=== PATIENT | female | born 1930 | race Caucasian/White ===

== ENCOUNTER 2018-12-12 12:52 | Inpatient (IN) ==
--- NOTE | 2018-12-12 15:48 | Internal Med History&Physical ---
Date of Encounter: 12/12/18 Time of Encounter: 15:34 Assessment and Plan (1) Femoral neck fracture Current visit: No Status: Acute Patient expresses some mechanical fall that resulted in a right hip fracture. Patient had a right hemiarthroplasty performed on 12/08/18 and an [facility]. Recovery was uneventful. Patient has had a recent left hemiarthroplasty performed 4 months ago also as a result of mechanical fall. Patient continues to have unsteady gait and remains a risk. Patient admitted for rehabilitation due to her weakness and unsteady gait. Surgical dressing to right hip appears dry and intact with a minimal amount of edema noted. No ecchymosis or erythema noted. Physical therapy evaluation pending. States pain is tolerable with current medications Qualifiers: Encounter type: initial encounter Fracture type: closed Laterality: left Qualified Code(s): S72.002A - Fracture of unspecified part of neck of left femur, initial encounter for closed fracture (2) CAD (coronary artery disease) Current visit: Yes Status: Chronic No acute issues per medical records. Patient denies any chest discomforts or palpitations. We will continue on current medications. Qualifiers: Coronary Disease-Associated Artery/Lesion type: bypass graft [place] vs. transplanted heart: [place] heart Associated angina: without angina Qualified Code(s): I25.810 - Atherosclerosis of coronary artery bypass graft(s) without angina pectoris (3) Hypertension Current visit: No Status: Chronic Vital signs are stable. We will continue with current medications. Qualifiers: Hypertension type: essential hypertension Qualified Code(s): I10 - Essential (primary) hypertension (4) Atrial fibrillation Current visit: No Status: Chronic No acute issues. Patient's ventricular rate is controlled at less than 100. We will continue with current medications Qualifiers: Atrial fibrillation type: chronic Qualified Code(s): I48.2 - Chronic atrial fibrillation (5) UTI (urinary tract infection) Current visit: Yes Status: Acute Patient was diagnosed with UTI while at [facility]. Patient was discharged with Keflex for 7 days. Currently asymptomatic and afebrile. Qualifiers: Urinary tract infection type: site unspecified Hematuria presence: without hematuria Qualified Code(s): N39.0 - Urinary tract infection, site not specified (6) Hyponatremia Current visit: No Status: Acute Patient's sodium at discharge was 124. Patient's sodium has remained in the low 120s her stay at [facility]. We will obtain labs in the morning for further evaluation. Patient currently is asymptomatic. Internal Medicine - H&P: HPI Chief complaint: ORIF of right hip Fx Admitted From: Hospital to Hospital Transfer Plans for Post Hospital Care: Home History of present illness: Ms. Ansari is a 88 year old female, who experienced a mechanical fall at home resulting in a right hip fracture. Patient had a elliot-arthroplasty of the right hip on 12/08/18. Patient's recovery from the surgery was uncomfortable [facility]. Patient also has had a recent left hemiarthroplasty performed approximate 4 months ago related to a fall at that time. Patient currently states that her pain has been well tolerated with current medications. Patient states she has already been ambulating with assistance prior to arrival to rehabilitation facility. Patient transferred to this facility for further rehabilitation due to her unsteady gait and will generalized weakness related to her right hip surgery. Denies any other discomforts or dyspnea. Patient family members did state the patient at times becomes somewhat confused at night with nocturnal confusion Past Med Surg Social Fam HX - Past Medical History Source: patient, old records reviewed Medical history: CHF, CVA, GERD, hypertension, myocardial infarction, thyroid disease Psychiatric history: depression - Past Surgical History Surgical History: appendectomy, cholecystectomy, coronary bypass (CABG), hysterectomy, pacemaker/AICD Additional surgical history: partial left lung lobectomy, abdominal surgery - Social History Smoking Status: Never smoker Smokeless Tobacco Status: No Alcohol use: none Drug use: none - Family History Mother Adopted: No Hx Family Cardiac Disorders: Yes Internal Medicine - H&P: Meds Apixaban [Eliquis] 5 mg PO BID 06/06/18 [History] Chlorthalidone 25 mg PO DAILY 06/06/18 [History] Levothyroxine Sodium 50 mcg PO DAILY 06/06/18 [History] Meloxicam 15 mg PO DAILY 06/06/18 [History] NIFEdipine [Nifedipine ER] 60 mg PO DAILY 06/06/18 [History] Pantoprazole Sodium [Protonix] 40 mg PO DAILY 06/06/18 [History] Sotalol HCl [Betapace] 120 mg PO BID 06/06/18 [History] Docusate [Colace] 100 mg PO BID capsule 06/09/18 [Rx] Ferrous Sulfate 325 mg PO BIDWM 30 Days #60 tablet 06/09/18 [Rx] HYDROcodone/Acet 5/325 mg [[place]ren 5-325 mg] 1 tab PO Q4H PRN 3 Days #12 tab 06/09/18 [Rx] MOM Conc [MILK OF MAGNESIA conc] 5 ml PO HS PRN [id number] 06/09/18 [Rx] Potassium Chloride [Klor-Con 10] 10 meq PO BID #0 06/09/18 [Rx] Allergy/AdvReac Type Severity Reaction Status Date / Time Influenza Virus Vaccines Allergy Wheezing Verified 06/06/18 01:12 Sulfa (Sulfonamide Allergy Anaphylaxis Verified 06/06/18 01:12 Antibiotics) Procaine [From Novocain] AdvReac Itching Verified 06/06/18 01:12 All Systems PM: A 10-system review of systems was performed and is negative for pertinent findings except as documented above in the HPI. - Constitutional Constitutional: as per HPI, no chills, no fever(s), no night sweats - EENT Eyes: as per HPI, no change in vision, no discharge, no pain, no photophobia Ears: as per HPI, no ear discharge, no ear pain, no tinnitus Nose, mouth and throat: as per HPI, no dysphagia, no nasal discharge, no neck pain, no sore throat - Breasts Breasts: as per HPI - Cardiovascular Cardiovascular ROS IM: as per HPI, no chest pain, no diaphoresis, no dyspnea, no lightheadedness, no palpitations, no syncope - Respiratory Respiratory: as per HPI, no cough, no dyspnea, no wheezing, no excessive phlegm production - Gastrointestinal Gastrointestinal: as per HPI, no abdominal pain, no diarrhea, no hematemesis, no hematochezia, no melena, no nausea, no vomiting - Genitourinary Genitourinary: as per HPI, no change in urinary stream, no dysuria, no flank pain, no hematuria Menstruation: as per HPI - Musculoskeletal Musculoskeletal ROS IM: as per HPI, no numbness, no tingling - Integumentary Integumentary IM: as per HPI, no rash, no unusual bruising - Neurological Neurological ROS: as per HPI, no confusion, no convulsions, no focal weakness, no numbness, no tingling, no tremor(s) - Psychiatric Psychiatric: as per HPI - Endocrine Endocrine IM: as per HPI - Hematologic/Lymphatic Hematologic/Lymphatic: no easy bruising - Constitutional Vitals: BP 160/90 12/12/18 13:43 General appearance: Present: A&O X 3, pleasant - Head Head exam: Present: atraumatic, normocephalic - Eye Eye exam: Present: PERRL, conjuntiva pink, sclera anicteric Pupils: Present: PERRL - Neck Neck exam general surgery: Present: full ROM, supple, trachea midline. Absent: lymphadenopathy - Respiratory Respiratory exam: Present: CTAB. Absent: accessory muscle use, rales, rhonchi, wheezes - Cardiovascular Cardiovascular exam: Present: RRR, +S1, +S2. Absent: diastolic murmur, gallop, rubs, systolic murmur - GI/Abdominal GI/Abdominal exam: Present: normal bowel sounds, soft, no peritoneal signs. Absent: distended, tenderness - Extremities Exam Extremities exam: Present: warm, radial pulses palpable and symmetrical. Absent: calf tenderness, cyanotic, pedal edema Additional comments: Right hip surgical dsg remains dry and intact. - Neurological Exam Neurological exam: Present: CN II-XII intact, oriented X3, no focal deficits. Absent: pronater drift, facial droop, speech deficit - Skin Skin exam: Present: dry, intact
[2018-12-12] MEDS ORDERED: Ibuprofen 600 MG TABLET PO PRN (16:21)
[2018-12-12] MEDS: cephALEXin 500 MG CAPSULE PO SCH (21:05)
[2018-12-12] MEDS: Apixaban 5 MG TABLET PO SCH (21:05)
[2018-12-12] MEDS: *HR* HYDROcodone/Acet 5/325 mg TABLET PO PRN (21:06)
[2018-12-13] MEDS: *HR* HYDROcodone/Acet 5/325 mg TABLET PO PRN ×3 (02:42→23:28)
[2018-12-13 05:57] LABS: Basophils % 0.3 %; Eosinophils # 0.5 K/mcL (0.0-0.6); Eosinophils % 4.1 %; Hematocrit 24.7 % (35.3-44.9); Hemoglobin 8.3 g/dL (11.5-15.4); Immature Granulocytes % 0.5 % (0-4); Lymphocytes # 2.8 K/mcL (0.6-4.6); Lymphocytes % 23.5 %; Mean Corpuscular HGB Conc 33.6 g/dL (31.6-35.5); Mean Corpuscular Hemoglobin 29.5 pg (28.0-33.3); Mean Corpuscular Volume 87.9 fL (83.0-100.0); Mean Platelet Volume 9.4 fL (9.4-12.4); Monocytes # 1.2 K/mcL (0.0-1.3); Monocytes % 10.2 %; Neutrophils # 7.4 K/mcL (1.6-8.9); Platelet Count 252 K/mcL (140-400); Red Blood Count 2.81 M/mcL (3.82-4.97); Red Cell Distribution Width 15.9 % (11.5-14.5); Segmented Neutrophils % 61.4 %
[2018-12-13 06:00] LABS: INR 1.6; Prothrombin Time 17.6 Seconds (9.4-12.1)
[2018-12-13 06:03] LABS: Activated Partial Thrombo Time 32.1 Seconds (26.0-36.0)
[2018-12-13 06:11] LABS: Alanine Aminotransferase 9 Units/L (7-52); Albumin 2.4 g/dL (3.5-5.7); Alkaline Phosphatase 124 Units/L (34-104); Aspartate Amino Transferase 22 Units/L (13-39); BUN/Creatinine Ratio 26 (6-26); Bilirubin,Total 0.9 mg/dL (0.3-1.0); Blood Urea Nitrogen 14 mg/dL (8-23); Calcium 7.9 mg/dL (8.6-10.3); Carbon Dioxide 29 mEq/L (23-29); Chloride 99 mEq/L (98-107); Globulin 2.4 g/dL (2.4-3.5); Glucose 100 mg/dL (70-105); Osmolality,Calculated 277 (280-300); Potassium 4.2 mEq/L (3.5-5.1); Sodium 133 mEq/L (136-145); Total Protein 4.8 g/dL (6.4-8.9); eGFR For Non-African Americans > 60 (> 60)
[2018-12-13] MEDS: Ascorbic Acid 500 MG TABLET PO SCH (09:02)
[2018-12-13] MEDS: cephALEXin 500 MG CAPSULE PO SCH ×3 (09:02→19:36)
[2018-12-13] MEDS: Apixaban 5 MG TABLET PO SCH ×2 (09:02→19:36)
[2018-12-13] MEDS: amLODIPine 5 MG TABLET PO SCH (09:02)
--- NOTE | 2018-12-13 16:24 | Internal Med Progress Note ---
Addendum entered and electronically signed by Susana Ramos 12/14/18 14:37: I have personally performed a face to face evaluation on this patient. I have reviewed and agree with the care plan. Original Note: Date of Encounter: 12/13/18 Time of Encounter: 16:22 - Assessment and plan (1) Femoral neck fracture Current Visit: Yes Status: Acute Assessment and plan: Continue PT and OT. Will follow progress. Follow up with ortho as scheduled. Continue current medications for pain. Qualifiers: Encounter type: sequela Fracture type: closed Laterality: left Qualif ied Code(s): S72.002S - Fracture of unspecified part of neck of left femur, sequela (2) CAD (coronary artery disease) Current Visit: Yes Status: Chronic Assessment and plan: Controlled. Denies chest pain. Monitor. Qualifiers: Coronary Disease-Associated Artery/Lesion type: bypass graft [place] vs. transplanted heart: [place] heart Associated angina: without angina Qualified Code(s): I25.810 - Atherosclerosis of coronary artery bypass graft(s) without angina pectoris (3) Hypertension Current Visit: Yes Status: Chronic Assessment and plan: Controlled with current medication. Monitor BP. Qualifiers: Hypertension type: essential hypertension Qualified Code(s): I10 - Essential (primary) hypertension (4) Atrial fibrillation Current Visit: Yes Status: Chronic Assessment and plan: Rate and rhythm controlled. Continue betapace and eliquis Qualifiers: Atrial fibrillation type: chronic Qualified Code(s): I48.2 - Chronic atrial fibrillation (5) UTI (urinary tract infection) Current Visit: Yes Status: Acute Assessment and plan: Denies urinary symptoms. Continue Keflex. Qualifiers: Urinary tract infection type: site unspecified Hematuria presence: without hematuria Qualified Code(s): N39.0 - Urinary tract infection, site not specified - Time Spent With Patient less than 15 minutes - Subjective Interval history: Patient participating well with therapy. Contact guard assist with transfers. Patient denies any pain. States medications are controlling it. Denies fever, chills, nausea vomiting or diarrhea. Maintaining appetite and hydration. States bowels moving as normal. Currently on Keflex for UTI. - Constitutional Vitals: Temp Pulse Resp BP Pulse Ox 98.3 F 58 16 109/64 95 12/13/18 07:25 12/13/18 07:25 12/13/18 07:25 12/13/18 07:25 12/13/18 07:25 General appearance: Present: cooperative, A&O X 3, pleasant, no acute distress, answers questions appropriately - Head Head exam: Present: atraumatic, normocephalic - Eye Eye exam: Present: PERRL, conjuntiva pink, sclera anicteric Pupils: Present: PERRL - Neck Neck exam general surgery: Present: supple, trachea midline. Absent: lymphadenopathy - Respiratory Respiratory exam: Present: CTAB. Absent: accessory muscle use, rales, rhonchi, wheezes - Cardiovascular Cardiovascular exam: Present: RRR, +S1, +S2. Absent: diastolic murmur, gallop, rubs, systolic murmur - GI/Abdominal GI/Abdominal exam: Present: normal bowel sounds, soft, no peritoneal signs. Absent: distended, tenderness - Extremities Exam Extremities exam: Present: warm, radial pulses palpable and symmetrical. Absent: calf tenderness, cyanotic, pedal edema - [place] Comments: Right hip incision dressing dry and intact with surrounding edema. - Neurological Exam Neurological exam: Present: CN II-XII intact, oriented X3, no focal deficits. Absent: pronater drift, facial droop, speech deficit - Skin Skin exam: Present: dry, intact Internal Medicine: Result - Labs CBC & Chem 7: 12/13/18 05:40 12/13/18 05:40 Labs: Short CBC 12/13/18 Range/Units 05:40 WBC 12.1 H (4.3-11.1) K/mcL Hgb 8.3 L (11.5-15.4) g/dL Hct 24.7 L (35.3-44.9) % Plt Count 252 (140-400) K/mcL Neutrophils # 7.4 (1.6-8.9) K/mcL BMP 12/13/18 05:40 Sodium 133 L Potassium 4.2 Chloride 99 Carbon Dioxide 29 BUN 14 Creatinine 0.53 L Glucose 100 Calcium 7.9 L Liver Function 12/13/18 Range/Units 05:40 Total Bilirubin 0.9 (0.3-1.0) mg/dL AST 22 (13-39) Units/L ALT 9 (7-52) Units/L Alkaline Phosphatase 124 H (34-104) Units/L Albumin 2.4 L (3.5-5.7) g/dL - ABG Interpretation ABG results: PT/INR, D-dimer PT 17.6 Seconds (9.4-12.1) H 12/13/18 05:40 Consult Discharge Plan - Plan Referrals: Haresh Franco MD [Primary Care Provider] - Pavel Bautista MD [Non-Partnered Physician] - (call for apt 2 wks after surgery)
[2018-12-14] MEDS: *HR* HYDROcodone/Acet 5/325 mg TABLET PO PRN ×4 (05:58→20:57)
[2018-12-14] MEDS: cephALEXin 500 MG CAPSULE PO SCH ×3 (09:40→20:57)
[2018-12-14] MEDS: Apixaban 5 MG TABLET PO SCH ×2 (09:40→20:57)
[2018-12-14] MEDS: Ascorbic Acid 500 MG TABLET PO SCH (09:40)
[2018-12-14] MEDS: amLODIPine 5 MG TABLET PO SCH (09:40)
--- NOTE | 2018-12-14 11:10 | Internal Med Progress Note ---
Addendum entered and electronically signed by Susana Ramos 12/14/18 14:38: I have personally performed a face to face evaluation on this patient. I have reviewed and agree with the care plan. Pt has had elevated WBC likely due to UTI. Afebrile. Will repeat CBC and continue antibiotic for UTI Albumen is low and pt has seen room cooler installer. She is giving whole milk as pt likes this. Original Note: Date of Encounter: 12/14/18 Time of Encounter: 11:08 - Assessment and plan (1) Femoral neck fracture Current Visit: Yes Status: Acute Assessment and plan: No acute issues. Right hip surgical site appears to be healing well and intact. Patient has been participating in physical therapy and progressing well. Patient is been well managed his current medications. We will continue with current plan of care. Qualifiers: Encounter type: sequela Fracture type: closed Laterality: left Qualified Code(s): S72.002S - Fracture of unspecified part of neck of left femur, sequela (2) CAD (coronary artery disease) Current Visit: Yes Status: Chronic Assessment and plan: No acute issues. Patient denies any chest discomforts or palpitations. We will continue with current medications. Qualifiers: Coronary Disease-Associated Artery/Lesion type: bypass graft [place] vs. transplanted heart: [place] heart Associated angina: without angina Qualified Code(s): I25.810 - Atherosclerosis of coronary artery bypass graft(s) without angina pectoris (3) Hypertension Current Visit: Yes Status: Chronic Assessment and plan: Vital signs remained stable. We will continue with current medications. Qualifiers: Hypertension type: essential hypertension Qualified Code(s): I10 - Essential (primary) hypertension (4) Atrial fibrillation Current Visit: Yes Status: Chronic Assessment and plan: Acute issues. Patient's ventricular rate has been well controlled less than 100. We will continue with current medications. Qualifiers: Atrial fibrillation type: chronic Qualified Code(s): I48.2 - Chronic atrial fibrillation (5) UTI (urinary tract infection) Current Visit: Yes Status: Acute Assessment and plan: Patient continues on Keflex for her UTI. Afebrile. Denies any dysuria. We will continue with current plan of care Qualifiers: Urinary tract infection type: site unspecified Hematuria presence: without hematuria Qualified Code(s): N39.0 - Urinary tract infection, site not specified (6) Hyponatremia Current Visit: Yes Status: Acute Assessment and plan: Patient's most recent sodium was 133. We will continue to monitor with serial labs. - Time Spent With Patient less than 15 minutes - Subjective Interval history: Patient appears relaxed and currently denies any discomforts surgical site or dyspnea. Patient does complain about sore throat. Patient denies any other flulike symptoms or productive cough. Patient states that her pain has been well tolerated with current pain medications. States that physical therapy has been progressing well although this morning she did feel malaised - Constitutional Vitals: Temp Pulse Resp BP Pulse Ox 98.0 F 66 20 129/76 94 12/14/18 07:37 12/14/18 07:37 12/14/18 07:37 12/14/18 07:37 12/14/18 07:37 General appearance: Present: cooperative, A&O X 3, pleasant, no acute distress, answers questions appropriately - Head Head exam: Present: atraumatic, normocephalic - Eye Eye exam: Present: PERRL, conjuntiva pink, sclera anicteric Pupils: Present: PERRL - Neck Neck exam general surgery: Present: supple, trachea midline. Absent: lymphadenopathy - Respiratory Respiratory exam: Present: CTAB. Absent: accessory muscle use, rales, rhonchi, wheezes Additional comments: Lungs are clear throughout upper giron with fine rales her to posterior bases. Respiratory effort is relaxed. No productive cough noted. - Cardiovascular Cardiovascular exam: Present: RRR, +S1, +S2. Absent: diastolic murmur, gallop, rubs, systolic murmur - GI/Abdominal GI/Abdominal exam: Present: normal bowel sounds, soft, no peritoneal signs. Absent: distended, tenderness - Extremities Exam Extremities exam: Present: warm, radial pulses palpable and symmetrical. Absent: calf tenderness, cyanotic, pedal edema Additional comments: Right hip surgical site appears healthy and intact. Left hip surgical site well-healed. - Neurological Exam Neurological exam: Present: CN II-XII intact, oriented X3, no focal deficits. Absent: pronater drift, facial droop, speech deficit - Skin Skin exam: Present: dry, intact Internal Medicine: Result - Labs CBC & Chem 7: 12/13/18 05:40 12/13/18 05:40 - ABG Interpretation ABG results: PT/INR, D-dimer PT 17.6 Seconds (9.4-12.1) H 12/13/18 05:40 Consult Discharge Plan - Plan Referrals: Haresh Franco MD [Primary Care Provider] - Pavel Bautista MD [Non-Partnered Physician] - (call for apt 2 wks after surgery)
[2018-12-15 04:56] LABS: Hematocrit 24.5 % (35.3-44.9); Hemoglobin 8.1 g/dL (11.5-15.4); Mean Corpuscular HGB Conc 33.1 g/dL (31.6-35.5); Mean Corpuscular Hemoglobin 29.5 pg (28.0-33.3); Mean Corpuscular Volume 89.1 fL (83.0-100.0); Mean Platelet Volume 9.1 fL (9.4-12.4); Platelet Count 313 K/mcL (140-400); Red Blood Count 2.75 M/mcL (3.82-4.97)
[2018-12-15] MEDS: *HR* HYDROcodone/Acet 5/325 mg TABLET PO PRN ×3 (05:42→16:40)
[2018-12-15 08:46] LABS: % Iron Saturation 14 % (15-50); Iron 37 mcg/dL (50-170); Transferrin 195 mg/dL (203-362)
[2018-12-15] MEDS: Apixaban 5 MG TABLET PO SCH ×2 (10:06→20:39)
[2018-12-15] MEDS: cephALEXin 500 MG CAPSULE PO SCH ×3 (10:07→20:39)
[2018-12-15] MEDS: amLODIPine 5 MG TABLET PO SCH (10:08)
[2018-12-15] MEDS: Ascorbic Acid 500 MG TABLET PO SCH (10:08)
--- NOTE | 2018-12-15 13:18 | Internal Med Progress Note ---
Date of Encounter: 12/15/18 Time of Encounter: 13:15 - Assessment and plan (1) Femoral neck fracture Current Visit: Yes Status: Acute Assessment and plan: No acute issues. Right hip surgical site appears to be healing well and intact. Patient has been participating in physical therapy and progressing well. Patient is been well managed his current medications. We will continue with current plan of care. Qualifiers: Encounter type: sequela Fracture type: closed Laterality: left Qualified Code(s): S72.002S - Fracture of unspecified part of neck of left femur, sequela (2) CAD (coronary artery disease) Current Visit: Yes Status: Chronic Assessment and plan: No acute issues. Patient denies any chest discomforts or palpitations. We will continue with current medications. Qualifiers: Coronary Disease-Associated Artery/Lesion type: bypass graft [place] vs. transplanted heart: [place] heart Associated angina: without angina Qualified Code(s): I25.810 - Atherosclerosis of coronary artery bypass graft(s) without angina pectoris (3) Hypertension Current Visit: Yes Status: Chronic Assessment and plan: Vital signs remained stable. We will continue with current medications. Qualifiers: Hypertension type: essential hypertension Qualified Code(s): I10 - Essential (primary) hypertension (4) Atrial fibrillation Current Visit: Yes Status: Chronic Assessment and plan: Acute issues. Patient's ventricular rate has been well controlled less than 100. We will continue with current medications. Qualifiers: Atrial fibrillation type: chronic Qualified Code(s): I48.2 - Chronic atrial fibrillation (5) Anemia Current Visit: Yes Status: Acute Assessment and plan: Patient has had a steady drop in her hemoglobin today or levels at 8.1. No signs of active bleeding noted. Patient had a steady decline since her surgery. Patient's labs show a serum iron of 37. Patient was placed on oral iron. We will guaiac stools. Patient started on Carafate. Repeat labs in a.m. Qualifiers: Anemia type: unspecified type Qualified Code(s): D64.9 - Anemia, unspecified - Time Spent With Patient less than 15 minutes - Subjective Interval history: Patient appears relaxed and currently denies any discomforts or dyspnea. Patient states that her pain has been well tolerated with current pain medications. States that physical therapy has been progressing well although this morning she did feel malaised - Constitutional Vitals: Temp Pulse Resp BP Pulse Ox 97.8 F 78 16 150/84 94 12/15/18 07:33 12/15/18 07:33 12/15/18 07:33 12/15/18 07:33 12/15/18 07:33 General appearance: Present: cooperative, A&O X 3, pleasant, no acute distress, answers questions appropriately - Head Head exam: Present: atraumatic, normocephalic - Eye Eye exam: Present: PERRL, conjuntiva pink, sclera anicteric Pupils: Present: PERRL - Neck Neck exam general surgery: Present: supple, trachea midline. Absent: lymphadenopathy - Respiratory Respiratory exam: Present: CTAB. Absent: accessory muscle use, rales, rhonchi, wheezes - Cardiovascular Cardiovascular exam: Present: RRR, +S1, +S2. Absent: diastolic murmur, gallop, rubs, systolic murmur - GI/Abdominal GI/Abdominal exam: Present: normal bowel sounds, soft, no peritoneal signs. Absent: distended, tenderness - Extremities Exam Extremities exam: Present: warm, radial pulses palpable and symmetrical. Absent: calf tenderness, cyanotic, pedal edema Additional comments: Right hip surgical site appears healthy and intact. Minimal edema noted. - Neurological Exam Neurological exam: Present: CN II-XII intact, oriented X3, no focal deficits. Absent: pronater drift, facial droop, speech deficit - Skin Skin exam: Present: dry, intact Internal Medicine: Result - Labs CBC & Chem 7: 12/15/18 04:48 12/13/18 05:40 Labs: Short CBC 12/15/18 Range/Units 04:48 WBC 12.6 H (4.3-11.1) K/mcL Hgb 8.1 L (11.5-15.4) g/dL Hct 24.5 L (35.3-44.9) % Plt Count 313 (140-400) K/mcL - ABG Interpretation ABG results: PT/INR, D-dimer PT 17.6 Seconds (9.4-12.1) H 12/13/18 05:40 Consult Discharge Plan - Plan Referrals: Haresh Franco MD [Primary Care Provider] - Pavel Bautista MD [Non-Partnered Physician] - (call for apt 2 wks after surgery)
[2018-12-15] MEDS: Cyanocobalamin (B-12) 1,000 MCG TABLET PO SCH (16:41)
[2018-12-15] MEDS ORDERED: Chloraseptic Spray 177 ML BOTTLE MM PRN (16:46)
[2018-12-16] MEDS: *HR* HYDROcodone/Acet 5/325 mg TABLET PO PRN ×3 (04:12→21:39)
[2018-12-16] MEDS: cephALEXin 500 MG CAPSULE PO SCH ×3 (08:02→21:40)
[2018-12-16] MEDS: Cyanocobalamin (B-12) 1,000 MCG TABLET PO SCH (08:02)
[2018-12-16] MEDS: Ascorbic Acid 500 MG TABLET PO SCH (08:02)
[2018-12-16] MEDS: amLODIPine 5 MG TABLET PO SCH (08:03)
[2018-12-16] MEDS: Apixaban 5 MG TABLET PO SCH ×2 (08:06→21:41)
--- NOTE | 2018-12-16 11:14 | Internal Med Progress Note ---
Date of Encounter: 12/17/18 Time of Encounter: 10:30 - Subjective Interval history: - Assessment and plan (1) Femoral neck fracture Current Visit: Yes Status: Acute Assessment and plan: No acute issues. Right hip surgical site appears to be healing well and intact. Patient has been participating in physical therapy and progressing well. Patient is been well managed his current medications. We will continue with current plan of care. Qualifiers: Encounter type: sequela Fracture type: closed Laterality: left Qualified Code(s): S72.002S - Fracture of unspecified part of neck of left femur, sequela (2) CAD (coronary artery disease) Current Visit: Yes Status: Chronic Assessment and plan: No acute issues. Patient denies any chest discomforts or palpitations. We will continue with current medications. Qualifiers: Coronary Disease-Associated Artery/Lesion type: bypass graft [place] vs. transplanted heart: [place] heart Associated angina: without angina Qualified Code(s): I25.810 - Atherosclerosis of coronary artery bypass graft(s) without angina pectoris (3) Hypertension Current Visit: Yes Status: Chronic Assessment and plan: Vital signs remained stable. We will continue with current medications. Qualifiers: Hypertension type: essential hypertension Qualified Code(s): I10 - Essential (primary) hypertension (4) Atrial fibrillation Current Visit: Yes Status: Chronic Assessment and plan: Acute issues. Patient's ventricular rate has been well controlled less than 100. We will continue with current medications but decrease dose of Eliquis to 2.5 mg po BID due to anemia and advanced age Qualifiers: Atrial fibrillation type: chronic Qualified Code(s): I48.2 - Chronic atrial fibrillation (5) Anemia Current Visit: Yes Status: Acute Assessment and plan: Patient has anemia that has improved from 8.1 No melana. No signs of active bleeding noted. Pt has been nutritionally depleted and not eating well. She has been placed on iron. Stool guaiac was ordered but may be false POS due to iron po. Pt also has been given NSAID. Will STOP nsaid. Patient started on PPI She is on eliquis for A Fib but does not appear to be bleeding. Will decrease dose to 2.5 from 5 mg . Repeat labs in a.m. Qualifiers: Anemia type: unspecified type Qualified Code(s): D64.9 - Anemia, unspecified (6) Huponatremia Pt sodium has been low will recheck she has been on cardiac diet but her protein and her sodium have been low will change her to [facility] ground meat regular diet continue fluid restriction - Time Spent With Patient less than 15 minutes - Subjective Interval history: Patient has been fatigued but cooperative. Patient states that her pain has been well tolerated with current pain medications. States that physical therapy has been progressing well - Constitutional Vitals: General appearance: Present: thin frail cooperative, A&O X 3, pleasant, no acute distress, fatigued - Head Head exam: Present: atraumatic, normocephalic - Eye Eye exam: Present: PERRL, conjuntiva pink, sclera anicteric Pupils: Present: PERRL - Neck Neck exam general surgery: Present: supple, trachea midline. Absent: lymphadenopathy - Respiratory Respiratory exam: Present: CTAB. Absent: accessory muscle use, rales, rhonchi, wheezes - Cardiovascular Cardiovascular exam: Present: RRR, +S1, +S2. Absent: diastolic murmur, gallop, rubs, systolic murmur - GI/Abdominal GI/Abdominal exam: Present: normal bowel sounds, soft, no peritoneal signs. Absent: distended, tenderness - Extremities Exam Extremities exam: Present: warm, radial pulses palpable and symmetrical. Absent: calf tenderness, cyanotic, pedal edema Additional comments: Right hip surgical site appears healthy and intact. Minimal edema noted. - Neurological Exam Neurological exam: Present: CN II-XII intact, oriented X3, no focal deficits. Absent: pronater drift, facial droop, speech deficit - Skin Skin exam: Present: dry, intact - Constitutional Vitals: Temp Pulse Resp BP Pulse Ox 98.0 F 67 17 125/83 94 12/16/18 06:52 12/16/18 06:52 12/15/18 18:55 12/16/18 06:52 12/16/18 06:52 Internal Medicine: Result - Labs CBC & Chem 7: 12/16/18 11:27 12/16/18 11:27 - ABG Interpretation ABG results: PT/INR, D-dimer PT 17.6 Seconds (9.4-12.1) H 12/13/18 05:40 Consult Discharge Plan - Plan Referrals: Haresh Franco MD [Primary Care Provider] - Bautista,Pavel S, MD [Non-Partnered Physician] - (call for apt 2 wks after surgery)
[2018-12-16 11:31] LABS: Hematocrit 26.7 % (35.3-44.9); Hemoglobin 8.6 g/dL (11.5-15.4); Mean Corpuscular HGB Conc 32.2 g/dL (31.6-35.5); Mean Corpuscular Hemoglobin 29.4 pg (28.0-33.3); Mean Corpuscular Volume 91.1 fL (83.0-100.0); Mean Platelet Volume 8.8 fL (9.4-12.4); Platelet Count 351 K/mcL (140-400); Red Blood Count 2.93 M/mcL (3.82-4.97); Red Cell Distribution Width 16.6 % (11.5-14.5)
[2018-12-16 11:45] LABS: BUN/Creatinine Ratio 28 (6-26); Blood Urea Nitrogen 16 mg/dL (8-23); Calcium 8.4 mg/dL (8.6-10.3); Carbon Dioxide 26 mEq/L (23-29); Chloride 98 mEq/L (98-107); Glucose 102 mg/dL (70-105); Osmolality,Calculated 273 (280-300); Sodium 131 mEq/L (136-145); eGFR For Non-African Americans > 60 (> 60)
[2018-12-16] MEDS: Nystatin SUSP 5 ML UD.LIQ PO SCH ×2 (16:39→21:40)
[2018-12-17] MEDS: *HR* HYDROcodone/Acet 5/325 mg TABLET PO PRN ×5 (01:32→21:36)
[2018-12-17] MEDS: Nystatin SUSP 5 ML UD.LIQ PO SCH ×4 (08:10→20:13)
[2018-12-17] MEDS: amLODIPine 5 MG TABLET PO SCH (08:11)
[2018-12-17] MEDS: cephALEXin 500 MG CAPSULE PO SCH ×3 (08:11→20:13)
[2018-12-17] MEDS: Cyanocobalamin (B-12) 1,000 MCG TABLET PO SCH (08:11)
[2018-12-17] MEDS: Apixaban 5 MG TABLET PO SCH ×2 (08:11→20:13)
[2018-12-17] MEDS: Ascorbic Acid 500 MG TABLET PO SCH (08:12)
--- NOTE | 2018-12-17 11:24 | Internal Med Progress Note ---
Date of Encounter: 12/17/18 Time of Encounter: 11:10 - Subjective Interval history: - Assessment and plan (1) Femoral neck fracture Current Visit: Yes Status: Acute Assessment and plan: No acute issues. Right hip surgical site appears to be healing well and intact. Patient has been participating in physical therapy and progressing well. Patient is been well managed his current medications. We will continue with current plan of care. Qualifiers: Encounter type: sequela Fracture type: closed Laterality: left Qualified Code(s): S72.002S - Fracture of unspecified part of neck of left femur, sequela (2) CAD (coronary artery disease) Current Visit: Yes Status: Chronic Assessment and plan: No acute issues. Patient denies any chest discomforts or palpitations. We will continue with current medications. Qualifiers: Coronary Disease-Associated Artery/Lesion type: bypass graft [place] vs. transplanted heart: [place] heart Associated angina: without angina Qualified Code(s): I25.810 - Atherosclerosis of coronary artery bypass graft(s) without angina pectoris (3) Hypertension Current Visit: Yes Status: Chronic Assessment and plan: Vital signs remained stable. We will continue with current medications. Qualifiers: Hypertension type: essential hypertension Qualified Code(s): I10 - Essential (primary) hypertension (4) Atrial fibrillation Current Visit: Yes Status: Chronic Assessment and plan: Acute issues. Patient's ventricular rate has been well controlled less than 100. We will continue with current medications but decrease dose of Eliquis to 2.5 mg po BID due to anemia and advanced age Qualifiers: Atrial fibrillation type: chronic Qualified Code(s): I48.2 - Chronic atrial fibrillation (5) Anemia Current Visit: Yes Status: Acute Assessment and plan: Patient has anemia that has improved from 8.1 to now 8.7 No melana. No signs of active bleeding noted. Pt has been nutritionally depleted and not eating well. She has been placed on iron. Stool guaiac was ordered but may be false POS due to iron po. Pt also has been given NSAID. Will STOP nsaid. Patient started on PPI She is on eliquis for A Fib but does not appear to be bleeding. Will decrease dose to 2.5 from 5 mg . Repeat labs in a.m. Qualifiers: Anemia type: unspecified type Qualified Code(s): D64.9 - Anemia, unspecified (6) Huponatremia Pt sodium has been low will recheck she has been on cardiac diet but her protein and her sodium have been low will change her to [facility] ground meat regular diet continue fluid restriction - Time Spent With Patient less than 15 minutes - Subjective Interval history: Patient has been fatigued but cooperative. Patient states that her pain has been well tolerated with current pain medications. States that physical therapy has been progressing well - Constitutional Vitals: General appearance: Present: thin frail cooperative, A&O X 3, pleasant, no acute distress, fatigued - Head Head exam: Present: atraumatic, normocephalic - Eye Eye exam: Present: PERRL, conjuntiva pink, sclera anicteric Pupils: Present: PERRL - Neck Neck exam general surgery: Present: supple, trachea midline. Absent: lymphadenopathy - Respiratory Respiratory exam: Present: CTAB. Absent: accessory muscle use, rales, rhonchi, wheezes - Cardiovascular Cardiovascular exam: Present: RRR, +S1, +S2. Absent: diastolic murmur, gallop, rubs, systolic murmur - GI/Abdominal GI/Abdominal exam: Present: normal bowel sounds, soft, no peritoneal signs. Absent: distended, tenderness - Extremities Exam Extremities exam: Present: warm, radial pulses palpable and symmetrical. Absent: calf tenderness, cyanotic, pedal edema Additional comments: Right hip surgical site appears healthy and intact. Minimal edema noted. - Neurological Exam Neurological exam: Present: CN II-XII intact, oriented X3, no focal deficits. Absent: pronater drift, facial droop, speech deficit - Skin Skin exam: Present: dry, intact - Constitutional Vitals: Temp Pulse Resp BP Pulse Ox 98.1 F 73 16 152/83 93 12/17/18 07:19 12/17/18 07:19 12/17/18 07:19 12/17/18 07:19 12/17/18 07:19 Internal Medicine: Result - Labs CBC & Chem 7: 12/16/18 11:27 12/16/18 11:27 Labs: Short CBC 12/16/18 Range/Units 11:27 WBC 12.1 H (4.3-11.1) K/mcL Hgb 8.6 L (11.5-15.4) g/dL Hct 26.7 L (35.3-44.9) % Plt Count 351 (140-400) K/mcL BMP 12/16/18 11:27 Sodium 131 L Potassium 4.0 Chloride 98 Carbon Dioxide 26 BUN 16 Creatinine 0.58 L Glucose 102 Calcium 8.4 L - ABG Interpretation ABG results: PT/INR, D-dimer PT 17.6 Seconds (9.4-12.1) H 12/13/18 05:40 Consult Discharge Plan - Plan Referrals: Haresh Franco MD [Primary Care Provider] - Pavel Bautista MD [Non-Partnered Physician] - (call for apt 2 wks after surgery)
[2018-12-18] MEDS: Apixaban 5 MG TABLET PO SCH ×2 (08:22→19:56)
[2018-12-18] MEDS: *HR* HYDROcodone/Acet 5/325 mg TABLET PO PRN ×3 (08:22→19:57)
[2018-12-18] MEDS: Cyanocobalamin (B-12) 1,000 MCG TABLET PO SCH (08:23)
[2018-12-18] MEDS: amLODIPine 5 MG TABLET PO SCH (08:23)
[2018-12-18] MEDS: cephALEXin 500 MG CAPSULE PO SCH ×3 (08:24→19:57)
[2018-12-18] MEDS: Ascorbic Acid 500 MG TABLET PO SCH (08:26)
[2018-12-18] MEDS: Nystatin SUSP 5 ML UD.LIQ PO SCH ×4 (08:27→19:57)
--- NOTE | 2018-12-18 10:14 | Internal Med Progress Note ---
Addendum entered and electronically signed by Susana Ramos 12/19/18 14:31: I have personally performed a face to face evaluation on this patient. I have reviewed and agree with the care plan. Original Note: Date of Encounter: 12/18/18 Time of Encounter: 10:12 - Assessment and plan (1) Femoral neck fracture Current Visit: Yes Status: Acute Assessment and plan: No acute issues. Right hip surgical site appears to be healing well and intact. Patient has been participating in physical therapy and progressing well. Patient is been well managed his current medications. We will continue with current plan of care. Qualifiers: Encounter type: sequela Fracture type: closed Laterality: left Qualified Code(s): S72.002S - Fracture of unspecified part of neck of left femur, sequela (2) CAD (coronary artery disease) Current Visit: Yes Status: Chronic Assessment and plan: No acute issues. Patient denies any chest discomforts or palpitations. We will continue with current medications. Qualifiers: Coronary Disease-Associated Artery/Lesion type: bypass graft [place] vs. transplanted heart: [place] heart Associated angina: without angina Qualified Code(s): I25.810 - Atherosclerosis of coronary artery bypass graft(s) without angina pectoris (3) Hypertension Current Visit: Yes Status: Chronic Assessment and plan: Vital signs remained stable. We will continue with current medications. Qualifiers: Hypertension type: essential hypertension Qualified Code(s): I10 - Essential (primary) hypertension (4) Atrial fibrillation Current Visit: Yes Status: Chronic Assessment and plan: Acute issues. Patient's ventricular rate has been well controlled less than 100. We will continue with current medications. Qualifiers: Atrial fibrillation type: chronic Qualified Code(s): I48.2 - Chronic atrial fibrillation - Time Spent With Patient less than 15 minutes - Subjective Interval history: Patient appears relaxed and currently denies any discomforts or dyspnea. Pat ient states that her pain has been well tolerated with current pain medications. States that physical therapy has been progressing well - Constitutional Vitals: Temp Pulse Resp BP Pulse Ox 98.2 F 68 16 141/85 96 12/18/18 06:50 12/18/18 06:50 12/18/18 06:50 12/18/18 06:50 12/18/18 06:50 General appearance: Present: cooperative, A&O X 3, pleasant, no acute distress, answers questions appropriately - Head Head exam: Present: atraumatic, normocephalic - Eye Eye exam: Present: PERRL, conjuntiva pink, sclera anicteric Pupils: Present: PERRL - Neck Neck exam general surgery: Present: supple, trachea midline. Absent: lymphadenopathy - Respiratory Respiratory exam: Present: CTAB. Absent: accessory muscle use, rales, rhonchi, wheezes - Cardiovascular Cardiovascular exam: Present: RRR, +S1, +S2. Absent: diastolic murmur, gallop, rubs, systolic murmur - GI/Abdominal GI/Abdominal exam: Present: normal bowel sounds, soft, no peritoneal signs. Absent: distended, tenderness - Extremities Exam Extremities exam: Present: warm, radial pulses palpable and symmetrical. Absent: calf tenderness, cyanotic, pedal edema Additional comments: Right hip surgical incision appears intact and healthy. Left hip surgical incision well-healed - Neurological Exam Neurological exam: Present: CN II-XII intact, oriented X3, no focal deficits. Absent: pronater drift, facial droop, speech deficit - Skin Skin exam: Present: dry, intact Internal Medicine: Result - Labs CBC & Chem 7: 12/16/18 11:27 12/16/18 11:27 - ABG Interpretation ABG results: PT/INR, D-dimer PT 17.6 Seconds (9.4-12.1) H 12/13/18 05:40 Consult Discharge Plan - Plan Referrals: Haresh Franco MD [Primary Care Provider] - Pavel Bautista MD [Non-Partnered Physician] - (call for apt 2 wks after surgery)
[2018-12-19] MEDS: *HR* HYDROcodone/Acet 5/325 mg TABLET PO PRN ×4 (04:35→18:19)
[2018-12-19 05:44] LABS: Hematocrit 26.1 % (35.3-44.9); Hemoglobin 8.4 g/dL (11.5-15.4); Mean Corpuscular HGB Conc 32.2 g/dL (31.6-35.5); Mean Corpuscular Hemoglobin 30.1 pg (28.0-33.3); Mean Corpuscular Volume 93.5 fL (83.0-100.0); Mean Platelet Volume 8.9 fL (9.4-12.4); Platelet Count 370 K/mcL (140-400); Red Blood Count 2.79 M/mcL (3.82-4.97); Red Cell Distribution Width 17.3 % (11.5-14.5)
[2018-12-19 06:00] LABS: BUN/Creatinine Ratio 27 (6-26); Blood Urea Nitrogen 17 mg/dL (8-23); Calcium 8.5 mg/dL (8.6-10.3); Carbon Dioxide 25 mEq/L (23-29); Chloride 101 mEq/L (98-107); Glucose 104 mg/dL (70-105); Osmolality,Calculated 276 (280-300); Potassium 4.6 mEq/L (3.5-5.1); Sodium 132 mEq/L (136-145); eGFR For Non-African Americans > 60 (> 60)
[2018-12-19] MEDS: Ascorbic Acid 500 MG TABLET PO SCH (08:32)
[2018-12-19] MEDS: Nystatin SUSP 5 ML UD.LIQ PO SCH ×4 (08:32→19:49)
[2018-12-19] MEDS: amLODIPine 5 MG TABLET PO SCH (08:32)
[2018-12-19] MEDS: Apixaban 5 MG TABLET PO SCH ×2 (08:33→19:49)
[2018-12-19] MEDS: Cyanocobalamin (B-12) 1,000 MCG TABLET PO SCH (08:33)
--- NOTE | 2018-12-19 13:41 | Internal Med Progress Note ---
Addendum entered and electronically signed by Susana Ramos 12/19/18 14:32: I have personally performed a face to face evaluation on this patient. I have reviewed and agree with the care plan. Original Note: Date of Encounter: 12/19/18 Time of Encounter: 13:39 - Assessment and plan (1) Femoral neck fracture Current Visit: Yes Status: Acute Assessment and plan: Continue PT and OT. Will follow progress. Follow up with ortho as scheduled. Continue current medications for pain. Qualifiers: Encounter type: sequela Fracture type: closed Laterality: left Qualif ied Code(s): S72.002S - Fracture of unspecified part of neck of left femur, sequela (2) CAD (coronary artery disease) Current Visit: Yes Status: Chronic Assessment and plan: Controlled. Denies chest pain. Monitor. Qualifiers: Coronary Disease-Associated Artery/Lesion type: bypass graft [place] vs. transplanted heart: [place] heart Associated angina: without angina Qualified Code(s): I25.810 - Atherosclerosis of coronary artery bypass graft(s) without angina pectoris (3) Hypertension Current Visit: Yes Status: Chronic Assessment and plan: Controlled with current medication. Monitor BP. Qualifiers: Hypertension type: essential hypertension Qualified Code(s): I10 - Essential (primary) hypertension (4) Atrial fibrillation Current Visit: Yes Status: Chronic Assessment and plan: Rate and rhythm controlled. Continue betapace and eliquis Qualifiers: Atrial fibrillation type: chronic Qualified Code(s): I48.2 - Chronic atrial fibrillation (5) Slow transit constipation Current Visit: Yes Status: Acute Assessment and plan: Yudi lacks daily. Will follow for improvement. - Time Spent With Patient less than 15 minutes - Subjective Interval history: Patient participating well with therapy. Contact guard assist with transfers. Patient denies any pain. States medications are controlling it. Denies fever, chills, nausea vomiting or diarrhea. Maintaining appetite and hydration. States bowels are not moving well. Discussed starting Miralax - Constitutional Vitals: Temp Pulse Resp BP Pulse Ox 97.6 F 51 16 127/72 98 12/19/18 07:10 12/19/18 07:10 12/19/18 07:10 12/19/18 07:10 12/19/18 07:10 General appearance: Present: cooperative, A&O X 3, pleasant, no acute distress, answers questions appropriately - Head Head exam: Present: atraumatic, normocephalic - Eye Eye exam: Present: PERRL, conjuntiva pink, sclera anicteric Pupils: Present: PERRL - Neck Neck exam general surgery: Present: supple, trachea midline. Absent: lymphadenopathy - Respiratory Respiratory exam: Present: CTAB. Absent: accessory muscle use, rales, rhonchi, wheezes - Cardiovascular Cardiovascular exam: Present: irregular rhythm, +S1, +S2. Absent: diastolic murmur, gallop, rubs, systolic murmur - GI/Abdominal GI/Abdominal exam: Present: normal bowel sounds, soft, no peritoneal signs. Absent: distended, tenderness - Extremities Exam Extremities exam: Present: warm, radial pulses palpable and symmetrical. Absent: calf tenderness, cyanotic, pedal edema - Incison Comments: Right hip dressing dry and intact. No drainage. - Neurological Exam Neurological exam: Present: CN II-XII intact, oriented X3, no focal deficits. Absent: pronater drift, facial droop, speech deficit - Skin Skin exam: Present: dry, intact Internal Medicine: Result - Labs CBC & Chem 7: 12/19/18 05:35 12/19/18 05:35 Labs: Short CBC 12/19/18 Range/Units 05:35 WBC 10.0 (4.3-11.1) K/mcL Hgb 8.4 L (11.5-15.4) g/dL Hct 26.1 L (35.3-44.9) % Plt Count 370 (140-400) K/mcL BMP 12/19/18 05:35 Sodium 132 L Potassium 4.6 Chloride 101 Carbon Dioxide 25 BUN 17 Creatinine 0.63 Glucose 104 Calcium 8.5 L - ABG Interpretation ABG results: PT/INR, D-dimer PT 17.6 Seconds (9.4-12.1) H 12/13/18 05:40 Consult Discharge Plan - Plan Referrals: Haresh Franco MD [Primary Care Provider] - Pavel Bautista MD [Non-Partnered Physician] - (call for apt 2 wks after surgery)
[2018-12-20] MEDS: *HR* HYDROcodone/Acet 5/325 mg TABLET PO PRN (05:26)
[2018-12-20] MEDS: Nystatin SUSP 5 ML UD.LIQ PO SCH (08:35)
[2018-12-20] MEDS: Apixaban 5 MG TABLET PO SCH (08:35)
[2018-12-20] MEDS: Ascorbic Acid 500 MG TABLET PO SCH (08:36)
[2018-12-20] MEDS: amLODIPine 5 MG TABLET PO SCH (08:36)
[2018-12-20] MEDS: Cyanocobalamin (B-12) 1,000 MCG TABLET PO SCH (08:36)
[2018-12-20 08:42] VITALS: BP 120/87
--- NOTE | 2018-12-20 10:30 | Discharge Summary ---
Addendum entered and electronically signed by Susana Ramos 12/21/18 12:01: I have personally performed a face to face evaluation on this patient. I have reviewed and agree with the care plan. Original Note: Date of Encounter: 12/20/18 Time of Encounter: 10:23 - Discharge Diagnosis (1) Femoral neck fracture Priority: Primary Status: Acute Comments: Discharging to home with . Recommended 24 hour supervision. Continue outpatient PT and OT. Follow up with surgeon as scheduled. Pain controlled with current medication. Qualifiers: Encounter type: sequela Fracture type: closed Laterality: left Qualified Code(s): S72.002S - Fracture of unspecified part of neck of left femur, sequela (2) CAD (coronary artery disease) Priority: Secondary Status: Chronic Comments: Denies chest pain. Continue current medication. Qualifiers: Coronary Disease-Associated Artery/Lesion type: bypass graft [place] vs. transplanted heart: [place] heart Associated angina: without angina Qualified Code(s): I25.810 - Atherosclerosis of coronary artery bypass graft(s) without angina pectoris (3) Hypertension Priority: Secondary Status: Chronic Comments: Controlled with current medication. Monitor blood pressure. Follow up with PCP. Qualifiers: Hypertension type: essential hypertension Qualified Code(s): I10 - Essential (primary) hypertension (4) Atrial fibrillation Priority: Secondary Status: Chronic Comments: Rate and rhythm controlled. Continue current medication. Follow up with PCP. Qualifiers: Atrial fibrillation type: chronic Qualified Code(s): I48.2 - Chronic atrial fibrillation (5) Slow transit constipation Priority: Secondary Status: Acute Comments: Instructed to continue Colace and Miralax as needed. Hospital course: Ms. Ansari is a 88 year old female Discharge discussed with: patient, family, nurse, social work - Time Spent with Patient Total time spent providing and/or coordinating discharge services: Time spent: Less than 30 minutes - Discharge Medications Prescriptions: No Action Pantoprazole Sodium [Protonix] 40 mg PO DAILY Levothyroxine Sodium 50 mcg PO DAILY Chlorthalidone 25 mg PO DAILY Apixaban [Eliquis] 5 mg PO BID Sotalol HCl [Betapace] 120 mg PO BID NIFEdipine [Nifedipine ER] 60 mg PO DAILY Meloxicam 15 mg PO DAILY Docusate [Colace] 100 mg PO BID capsule Ferrous Sulfate 325 mg PO BIDWM 30 Days #60 tablet HYDROcodone/Acet 5/325 mg [[place] 5-325 mg] 1 tab PO Q4H PRN 3 Days #12 tab PRN Reason: Pain MOM Conc [MILK OF MAGNESIA conc] 5 ml PO HS PRN ud.liq PRN Reason: Constipation Potassium Chloride [Klor-Con 10] 10 meq PO BID #0 Home Medications: Apixaban [Eliquis] 5 mg PO BID 06/06/18 [History] Chlorthalidone 25 mg PO DAILY 06/06/18 [History] Levothyroxine Sodium 50 mcg PO DAILY 06/06/18 [History] Meloxicam 15 mg PO DAILY 06/06/18 [History] NIFEdipine [Nifedipine ER] 60 mg PO DAILY 06/06/18 [History] Pantoprazole Sodium [Protonix] 40 mg PO DAILY 06/06/18 [History] Sotalol HCl [Betapace] 120 mg PO BID 06/06/18 [History] Docusate [Colace] 100 mg PO BID capsule 06/09/18 [Rx] HYDROcodone/Acet 5/325 mg [[place] 5-325 mg] 1 tab PO Q4H PRN 3 Days #12 tab 06/09/18 [Rx] MOM Conc [MILK OF MAGNESIA conc] 5 ml PO HS PRN ud.liq 06/09/18 [Rx] Potassium Chloride [Klor-Con 10] 10 meq PO BID #0 06/09/18 [Rx] Ascorbic Acid [Vitamin C] 250 mg PO DAILY tablet 12/20/18 [Rx] Cyanocobalamin (B-12) [Vitamin B12] 1,000 mcg PO DAILY tablet 12/20/18 [Rx] Ferrous Sulfate 325 mg PO DAILY@0800 tablet 12/20/18 [Rx] Polyethylene Glycol 3350 [MiraLAX] 17 gm PO DAILY powd.pack 12/20/18 [Rx] amLODIPine [Norvasc] 5 mg PO DAILY tablet 12/20/18 [Rx] Allergies/Adverse Reactions: Allergy/AdvReac Type Severity Reaction Status Date / Time Influenza Virus Vaccines Allergy Severe Wheezing Verified 12/12/18 17:19 amiodarone Allergy Hives Verified 12/12/18 17:20 Sulfa (Sulfonamide Allergy Anaphylaxis Verified 06/06/18 01:12 Antibiotics) Procaine [From Novocain] AdvReac Itching Verified 06/06/18 01:12 Date of admission: 12/12/18 12:52 Primary care physician: Haresh Franco MD Consults: 12/12/18 15:57 Consult to Occupational Therapy [CONS] Routine Comment: Evaluate, develop and implement POC Reason for Consult: Eval for post hip surgery Does patient have active BEDREST order?: No Is patient medically & hemodynamically stable?: Yes Patient assessed for mobility or mobilized this visit?: No Consult to Physical Therapy [CONS] Routine Comment: Evaluate, develop and implement POC Reason for Consult: eval for post hip replacement Does patient have active BEDREST order?: No Is patient medically & hemodynamically stable?: Yes Patient assessed for mobility or mobilized this visit?: No Consult to Recreational Therapy [CONS] Routine Comment: Evaluate, develop and implement POC Consult to Excellence Coach [CONS] Routine Reason for SW Consult: Eval for post hip replacement Discharging clinician: Susana Ramos Anticipated date of discharge: 12/20/18 - Constitutional Vitals: Temp Pulse Resp BP Pulse Ox 98.0 F 72 16 120/87 97 12/20/18 08:42 12/20/18 08:42 12/20/18 08:42 12/20/18 08:42 12/20/18 08:42 General appearance: Present: cooperative, A&O X 3, pleasant, no acute distress, answers questions appropriately - Head Head exam: Present: atraumatic, normocephalic - Eye Eye exam: Present: PERRL, conjuntiva pink, sclera anicteric Pupils: Present: PERRL - Neck Neck exam general surgery: Present: supple, trachea midline. Absent: lympha denopathy - Respiratory Respiratory exam: Present: CTAB. Absent: accessory muscle use, rales, rhonchi, wheezes - Cardiovascular Cardiovascular exam: Present: RRR, +S1, +S2. Absent: diastolic murmur, gallop, rubs, systolic murmur - GI/Abdominal GI/Abdominal exam: Present: normal bowel sounds, soft, no peritoneal signs. Absent: distended, tenderness - Extremities Exam Extremities exam: Present: warm, radial pulses palpable and symmetrical. Absent: calf tenderness, cyanotic, pedal edema - Incison Comments: right hip drsg dry and intact. no drainage. - Neurological Exam Neurological exam: Present: CN II-XII intact, oriented X3, no focal deficits. Absent: pronater drift, facial droop, speech deficit - Skin Skin exam: Present: dry, intact - Patient Status Disposition: Home, Self-Care Condition: Good Functional capacity at discharge: uses cane/walker Overall status at discharge: patient is progressing back to baseline - Discharge Instructions Follow Up With: Haresh Franco MD [Primary Care Provider] - Pavel Bautista MD [Non-Partnered Physician] - (call for apt 2 wks after surgery) - Diet and Activity Activity: as per physical therapy Diet: advance to your usual diet
== END 2018-12-20 12:10 | disposition home or self-care (01) | DRG 560 ==
LOC: INPGRE 12:52